=== PATIENT | female | born 1965 | race Caucasian/White ===

== ENCOUNTER 2017-08-22 16:59 | Emergency (ER) | payer OTHER ==
[2017-08-22 17:33] VITALS: BP 111/62
--- NOTE | 2017-08-22 18:02 | UC ---
Skin Complaint HPI - HPI Summary HPI Summary: Patient just returned from [facility]. has rash on her inner thighs that has spreas to her stomach. she had a massage with oil she may have been allergic too prior to it starting - History of Current Complaint Chief Complaint: UCSkin Time Seen by Provider: 08/22/17 17:50 Stated Complaint: RASH TRAVELED TO [facility] Hx Obtained From: Patient Hx Last Menstrual Period: n/a ?: No Onset/Duration: Sudden Onset, Lasting Days Skin Exposure Onset/Duration: Days Ago Timing: Constant Onset Severity: Mild Current Severity: Mild Location: Diffuse - Allergy/Home Medications Allergies/Adverse Reactions: Allergies Allergy/AdvReac Type Severity Reaction Status Date / Time Levofloxacin [From Levaquin] Allergy Intermediate Rash Verified 08/22/17 17:34 Soy Allergy Allergy Intermediate Rash Verified 08/22/17 17:34 Review of Systems Constitutional: Negative Skin: Rash Eyes: Negative ENT: Negative Respiratory: Negative Cardiovascular: Negative Gastrointestinal: Negative Genitourinary: Negative Motor: Negative Neurovascular: Negative Musculoskeletal: Negative Neurological: Negative Psychological: Negative Is Patient Immunocompromised?: No All Other Systems Reviewed And Are Negative: Yes PMH/Surg Hx/FS Hx/Imm Hx Previously Healthy: Yes - Surgical History Surgical History: Yes Surgery Procedure, Year, and Place: HYSTERECTOMY. APPY - Family History Known Family History: Positive: Other - brother with lung ca - Social History Alcohol Use: Occasionally Substance Use Type: None Smoking Status (MU): Former Smoker When Did the Patient Quit Smoking/Using Tobacco: quit about 2010 - Immunization History Most Recent Influenza Vaccination: no Physical Exam Triage Information Reviewed: Yes Appearance: Well-Appearing, Well-Nourished, Pain Distress Vital Signs: Initial Vital Signs Temp 97.9 F 08/22/17 17:29 Pulse 73 08/22/17 17:29 Resp 16 08/22/17 17:29 BP 111/62 08/22/17 17:29 Pulse Ox 100 08/22/17 17:29 Vital Signs Reviewed: Yes Eye Exam: Normal ENT Exam: Normal ENT: Positive: Pharynx normal, TMs normal Dental Exam: Normal Neck exam: Normal Respiratory Exam: Normal Respiratory: Positive: Chest non-tender, Lungs clear, Normal breath sounds Cardiovascular Exam: Normal Cardiovascular: Positive: RRR, No Murmur, Pulses Normal Abdominal Exam: Normal Bowel Sounds: Positive: Present Musculoskeletal Exam: Normal Neurological Exam: Normal Psychological Exam: Normal Skin: Positive: rashes - small red bumps on inner thighs, stomach and back Course/Dx - Course Course Of Treatment: hx obtained, exam performed,meds reviewed, treated for dermatitis - Differential Diagnoses - Skin Complaint Differential Diagnoses: Cellulitis, Contact Dermatitis, Poison [place], Poison [place] - Diagnoses Provider Diagnoses: contact dermatitis Discharge - Discharge Plan Condition: Stable Disposition: HOME Prescriptions: predniSONE TAB* [Deltasone TAB*] 40 mg PO DAILY #14 tab Patient Education Materials: Contact Dermatitis (ED) Additional Instructions: 1. take the medication as prescribed. 2. keep area cool and dry 3. follow up with worsening symtpoms
== END 2017-08-22 18:07 | disposition home or self-care (01) ==
LOC: UCCORT 16:59
DX: L25.9 Unspecified contact dermatitis, unspecified cause (principal); Z87.891 Personal history of nicotine dependence
CPT/HCPCS: 99212; G0463